=== PATIENT | female | born 1945 | race Caucasian/White ===

== ENCOUNTER 2021-07-13 15:44 | Outpatient (REF) | payer MEDICARE, BC, SELFPAY ==
[2021-07-13 16:51] LABS: MANUAL DIFF FLAG NO
[2021-07-13 16:54] LABS: Basophils Absolute Auto 0.1 X10*3/uL (0.0-0.2); Basophils Percent Auto 0.8 % (0-2); Eosinophils Absolute Auto 0.1 X10*3/uL (0.0-0.4); Eosinophils Percent Auto 1.3 % (0-4); Hematocrit 39.6 % (37-47); Hemoglobin 12.4 g/dl (12.0-16.0); Imm Gran Abs Auto 0.03 X10*3/uL (0.00-0.03); Imm Gran Pct Auto 0.4 % (0.0-0.4); Lymphocytes Absolute Auto 2.4 X10*3/uL (1.2-4.9); Lymphocytes Percent Auto 29.2 % (20-40); Mean Corpuscular HGB Conc 31.3 g/dl (31.0-35.0); Mean Corpuscular Hemoglobin 29.1 pg (27.0-33.0); Mean Platelet Volume 10.3 fL (9.4-12.3); Monocytes Absolute Auto 0.6 X10*3/uL (0.1-1.2); Monocytes Percent Auto 7.7 % (2-11); Neutrophils Percent Auto 60.6 % (45-73); Platelet Count 190 X10*3/uL (160-400); Red Blood Count 4.26 X10*6/uL (4.20-5.50); Red Cell Distribution Width 14.6 % (11.0-16.0); White Blood Count 8.3 X10*3/uL (4.8-10.8)
[2021-07-13 17:29] LABS: Alanine Aminotransferase 17 U/L (0-31); Albumin Level 3.9 g/dL (3.5-5.0); Alkaline Phosphatase 80 U/L (39-117); Anion Gap 10 (12-20); Aspartate Amino Transferase 24 U/L (5-31); Bilirubin Total 0.9 mg/dL (0.0-1.0); Blood Urea Nitrogen 8 mg/dL (9-16); Carbon Dioxide 28 mmol/L (22-29); Chloride 106 mmol/L (96-108); Cholesterol 144 mg/dL; Estimated Glomerular Filt Rate > 60; Glucose Random 97 mg/dL (60-115); Sodium 140 mmol/L (135-145); Total Protein 6.6 g/dL (6.5-8.0)
[2021-07-13 17:37] LABS: Creatinine Urine 134.34 mg/dL
[2021-07-13 17:43] LABS: Free T4 (Free Thyroxine) 0.93 ng/dL (0.71-1.85)
[2021-07-14 07:39] LABS: Estimated Average Glucose 103 mg/dL; Hemoglobin A1c % 5.2 %
== END 2021-07-13 15:45 | disposition home or self-care (01) ==
LOC: HO.LAB 15:44
PROVIDERS: PCP Internal Medicine; Visit Provider Internal Medicine
DX: I10 Essential (primary) hypertension (principal); E11.9 Type 2 diabetes mellitus without complications; E78.00 Pure hypercholesterolemia, unspecified; J44.9 Chronic obstructive pulmonary disease, unspecified; R25.1 Tremor, unspecified
CPT/HCPCS: 36415; 80053; 82043; 82465; 83036; 84439; 85025